=== PATIENT | male | born 1995 | race Caucasian/White ===

== ENCOUNTER 2019-04-05 09:07 | Emergency (ER) | payer MEDICAID ==
[2019-04-05 09:13] VITALS: BMI 29.2
--- NOTE | 2019-04-05 09:55 | ED PDOC ---
Arrival/HPI - General Chief Complaint: GI Problem Time Seen by Provider: 04/05/19 09:08 Historian: Patient - History of Present Illness Narrative History of Present Illness (Text): 24 y/o male with PMH of hepatitis C presents to the ED c/o right sided abdominal pain and dark stools x 3 days. Abdominal pain is sharp, constant, and occasionally radiates up into right shoulder. Recently diagnosed with Hep C in November but has not yet received treatment. Pt has had similar symptoms intermittent symptoms in the past but never for this long. Pt saw primary doctor last week and had normal lab values. Has not taken any medication for pain. Denies fever, chills, nausea, vomiting, diarrhea, constipation, melena, hematochezia, back pain, urinary symptoms, SOB, chest pain, or any other associated symptoms. Past Medical History - Provider Review Nursing Documentation Reviewed: Yes - Cardiac Hx Cardiac Disorders: No - Pulmonary Hx Asthma: Yes - Neurological Hx Neurological Disorder: No - HEENT Hx HEENT Disorder: No - Renal Hx Renal Disorder: Yes Other/Comment: fluid in kidneys - Endocrine/Metabolic Hx Endocrine Disorders: No - Hematological/Oncological Hx Blood Disorders: Yes Hx Hepatitis C: Yes - Integumentary Hx Dermatological Disorder: No - Musculoskeletal/Rheumatological Hx Musculoskeletal Disorders: No - Gastrointestinal Hx Gastrointestinal Disorders: No - Genitourinary/Gynecological Hx Genitourinary Disorders: No - Psychiatric Hx Psychophysiologic Disorder: No Hx Substance Use: No - Surgical History Other/Comment: hip femur, titanium and screws on left side. Family/Social History - Physician Review Nursing Documentation Reviewed: Yes Family/Social History: No Known Family HX Smoking Status: Current Some Days Smoker Hx Alcohol Use: No Hx Substance Use: No Allergies/Home Meds Allergies/Adverse Reactions: Allergies acetaminophen [From Tylenol] Allergy (Verified 04/05/19 09:14) ANAPHYLAXIS diphenhydramine [From Benadryl] Allergy (Verified 04/05/19 09:14) ANAPHYLAXIS gabapentin Allergy (Verified 04/05/19 09:14) SWELLING tramadol Allergy (Verified 04/05/19 09:14) URTICARIA Home Medications: Home Meds Medication Instructions Recorded Confirmed Albuterol Sulfate [Proventil Hfa] 2 puff IH PRN PRN 04/05/19 04/05/19 Cyclobenzaprine [Flexeril] 5 mg PO DAILY 04/05/19 04/05/19 Testosterone Cypionate 50 mg IM QWK 04/05/19 04/05/19 [Depo-Testosterone] Topiramate [Topamax] 0 mg PO DAILY 04/05/19 04/05/19 valACYclovir [Valtrex] 0 mg PO DAILY 04/05/19 04/05/19 Review of Systems - Physician Review All systems were reviewed & negative as marked: Yes - Review of Systems Constitutional: Normal. absent: Fevers Eyes: Normal. absent: Vision Changes ENT: Normal. absent: Sore Throat, Sinus Congestion Respiratory: Normal. absent: SOB, Cough Cardiovascular: Normal. absent: Chest Pain, Palpitations, Syncope Gastrointestinal: Abdominal Pain, Diarrhea. absent: Vomiting, Hematochezia, Hematemesis Genitourinary Male: Normal. absent: Dysuria, Frequency Musculoskeletal: Other (right shoulder pain). absent: Back Pain, Neck Pain Skin: Normal. absent: Rash Neurological: Normal. absent: Headache, Dizziness Physical Exam Vital Signs Reviewed: Yes Vital Signs Temp Pulse Resp BP Pulse Ox 04/05/19 09:19 97.5 F L 103 H 20 129/81 98 Temperature: Afebrile Blood Pressure: Normal Pulse: Tachycardic Respiratory Rate: Normal Appearance: Positive for: Well-Appearing, Non-Toxic, Comfortable Pain Distress: None Mental Status: Positive for: Alert and Oriented X 3 - Systems Exam Head: Present: Atraumatic, Normocephalic Pupils: Present: PERRL Extroacular Muscles: Present: EOMI Conjunctiva: Present: Normal Mouth: Present: Moist Mucous Membranes Neck: Present: Normal Range of Motion Respiratory/Chest: Present: Clear to Auscultation, Good Air Exchange. No: Respiratory Distress, Accessory Muscle Use Cardiovascular: Present: Regular Rate and Rhythm, Normal S1, S2, Peripheal Pulses Present Abdomen: Present: Tenderness (RUQ, periumbilical), Normal Bowel Sounds. No: Distention, Peritoneal Signs Back: Present: Normal Inspection. No: CVA Tenderness Upper Extremity: Present: Normal Inspection, Normal ROM. No: Cyanosis, Edema Lower Extremity: Present: Normal Inspection, Normal ROM. No: Edema Neurological: Present: GCS=15, Speech Normal, Motor Func Grossly Intact, Normal Sensory Function, Gait Normal Skin: Present: Warm, Dry, Normal Color. No: Rashes Lymphatic: No: Cervical Adenopathy Psychiatric: Present: Alert, Oriented x 3, Normal Insight, Normal Concentration, Normal Affect, Normal Mood Medical Decision Making ED Course and Treatment: Initial Plan: * Labs * UA * CXR * Abdominal US * CT Abd/Pelvis * Rectal Exam * IVF, Protonix Bloodwork reviewed, very mild anemia at 13.9, otherwise unremarkable US unremarkable 12:59 Continues to refuse rectal exam CT shows constipation but otherwise grossly unremarkable Patient asking to leave AMA, continues to refuse rectal exam, which would determine patient's final disposition depending on presence of occult blood. The patient is choosing to leave against medical advice. I have personally explained to the patient that choosing to do so may result in permanent bodily harm, disability, or . I have discussed at great length that without further evaluation and monitoring there may be unforeseen circumstances and/or deterioration causing permanent bodily harm or as a result of their choice. The patient is alert, oriented, and shows the mental capacity to make clear decisions regarding the patients health care at this time. The patient continues to wish to leave against medical advice. In light of the patients decision to leave against medical advice, follow-up has been arranged and the patient is aware of the importance to following up as instructed. The patient has been advised that they should return to the emergency room immediately if they change their mind at any time, or if their condition begins to change or worsen in any way. - Lab Interpretations Lab Results: 04/05/19 10:33 04/05/19 11:21 Lab Results 04/05/19 11:27: Urine Color Yellow, Urine Appearance Clear, Urine pH 7.0, Ur Specific [place] 1.020, Urine Protein Negative, Urine Glucose (UA) Negative, Urine Ketones Negative, Urine Blood Negative, Urine Nitrate Negative, Urine Bi lirubin Negative, Urine Urobilinogen 0.2, Ur Leukocyte Esterase Trace H, Urine RBC 0 - 2, Urine WBC 2 - 5, Ur Epithelial Cells None, Urine Bacteria Many, Urine Other [place]ast 04/05/19 11:21: Sodium 139, Potassium 3.6, Chloride 104, Carbon Dioxide 27, A nion [place] 11, BUN 12, Creatinine 0.6 L, Est GFR ( Amer) > 60, Est GFR (Non-Af Amer) > 60, Random Glucose 122 H, Calcium 8.7, Magnesium 1.8, Total Bilirubin 0.3, AST 37, ALT 45, Alkaline Phosphatase 73, Total Protein 7.3, Albumin 4.0, Globulin 3.3, Albumin/Globulin Ratio 1.2, Lipase 45 04/05/19 10:33: PT 11.3, INR 1.00, APTT 26.3 L 04/05/19 10:33: WBC 9.7, RBC 4.92, Hgb 13.9 L, Hct 40.7 L, MCV 82.7, MCH 28.3, MCHC 34.2, RDW 13.0, Plt Count 287, MPV 10.1, Neut % (Auto) 79.8 H, Lymph % (Auto) 16.4 L, [place] % (Auto) 3.4, Eos % (Auto) 0.3 L, Baso % (Auto) 0.1, Lymph # (Auto) 1.6, [place] # (Auto) 0.3, Eos # (Auto) 0.0, Baso # (Auto) 0.01, Absolute Neuts (auto) 7.73 H I have reviewed the lab results: Yes - RAD Interpretation Narrative RAD Interpretations (Text): 04/05/19 13:37 CT Abd/Pelvis: FINDINGS: LOWER THORAX: Heart size upper limits of normal. No significant pericardial effusion. There appears to be very tiny hiatal hernia. Mild passive/dependent type atelectasis seen both posterior lower lung miranda. No effusion or basilar pneumothorax. LIVER: The liver exhibits normal size measuring approximately 16 cm in CC dimension. Mild diffuse fatty hepatic infiltration. No obvious hepatic mass collection or calcification. Portal and splenic veins opacified. GALLBLADDER AND BILE DUCTS: Gallbladder is contracted with slight thick-walled appearance. No evidence of intraluminal gallbladder calculi. No pericholecystic fluid collections seen PANCREAS: Unremarkable. No mass. No significant ductal dilatation. SPLEEN: Spleen exhibits normal size and attenuation pattern without mass collection or calcification. ADRENALS: There are no adrenal lesions. KIDNEYS AND URETERS: Kidneys demonstrate relatively symmetric nephrograms. No evidence of nephrolithiasis or hydronephrosis. BLADDER: Urinary bladder incompletely distended with slight thick-walled appearance. Correlation with urinalysis to exclude cystitis. REPRODUCTIVE: Uterus appears unremarkable. APPENDIX: Normal appendix without evidence to suggest acute appendicitis BOWEL: Evaluation of the bowel is limited due to the lack of oral contrast material. The stomach is partially distended with slight thick-walled appearance. Visualized loops of small bowel exhibit normal contour and caliber. No evidence of acute mechanical small bowel obstruction. There is a moderately large amount of stool within the cecum and ascending colon suggesting mild fecal retention/constipation. Colon otherwise appears grossly unremarkable. PERITONEUM: Unremarkable. No fluid collection. No free air. LYMPH NODES: Unremarkable. No enlarged lymph nodes. VASCULATURE: Unremarkable. No aortic aneurysm. No aortic atherosclerotic calcification or mural plaque present. BONES: No evidence of acute displaced fracture nor dislocation. In situ compression screw traversing the left femoral head and neck which is attached to a intramedullary fixation roberto within the left femoral shaft. Hardware appears intact. OTHER FINDINGS: None. IMPRESSION: Findings suggest mild localized constipation right colon as above.. No evidence of acute appendicitis. Mild fatty hepatic infiltration. No evidence of nephrolithiasis or hydronephrosis. Minimal urinary bladder wall thickening in part due to incomplete distention; correlation urinalysis to exclude cystitis In situ compression screw and intramedullary stabilization roberto left femur. Abdominal US: FINDINGS: LIVER: Measures 14.5 cm. Normal echogenicity of the liver parenchyma. No mass. No intrahepatic bile duct dilatation. GALLBLADDER: Unremarkable. No gallstones. COMMON BILE DUCT: Measures 3 mm. No stones. No dilatation. PANCREAS: Unremarkable as visualized. No mass. No ductal dilatation. RIGHT KIDNEY: Measures 11.2cm. Normal echogenicity. No calculus, mass, or hydronephrosis. LEFT KIDNEY: Measures 10.2cm. Normal echogenicity. No calculus, mass, or hydronephrosis. SPLEEN: Normal in size and contour. No mass. AORTA: No aneurysmal dilatation. IVC: Unremarkable. OTHER FINDINGS: None. IMPRESSION: Unremarkable abdominal ultrasound examination. Radiology Orders: 04/05/19 09:44 CHEST PORTABLE [RAD] Stat ABDOMEN COMPLETE [US] Stat 04/05/19 09:48 ABD & PELVIS IV CONTRAST ONLY [CT] Stat Chief Contract Officer: Radiologist Disposition/Present on Arrival - Present on Arrival Any Indicators Present on Arrival: No History of DVT/PE: No History of Uncontrolled Diabetes: No Urinary Catheter: No History of Decub. Ulcer: No History Surgical Site Infection Following: None - Disposition Have Diagnosis and Disposition been Completed?: No Diagnosis: Abdominal pain, Constipation, Anemia, Left against medical advice Disposition: AGAINST MEDICAL ADVICE Disposition Time: 13:45 Condition: GUARDED Discharge Instructions (ExitCare): Anemia Caused by Low Iron, Adult (DC), Acute Abdomen (Belly Pain), Gastrointestinal Bleeding (DC), Leaving Against Medical Advice Additional Instructions: Miralax daily until normal bowel movement, max 3 days Followup with GI doctor within 2 days Followup with primary doctor within 2 days Return to ER with any new/worsening symptoms or if you wish to be re-evaluated Prescriptions: Polyethylene Glycol 3350 [Miralax] 17 gm PO DAILY PRN #1 bottle PRN Reason: Constipation Referrals: Moises Bassett MD [Staff Provider] - Follow up with primary Forms: [employer] [facility] (Ch[place]an), WORK NOTE
[2019-04-05 10:51] LABS: BASO # 0.01 K/mm3 (0.0-2.0); BASO % 0.1 % (0.0-3.0); EOS % 0.3 % (1.5-5.0); HEMOGLOBIN 13.9 g/dL (14.0-18.0); LYMPH # 1.6 (1.2-3.4); LYMPH % 16.4 % (22.0-35.0); MEAN CELL VOLUME 82.7 fl (80.0-105.0); MEAN CORPUSCULAR HEMOGLOBIN 28.3 pg (25.0-35.0); MEAN CORPUSCULAR HGB CONC 34.2 g/dl (31.0-37.0); MEAN PLATELET VOLUME 10.1 fl (7.0-11.0); MONO # 0.3 (0.1-0.6); MONO % 3.4 % (1.0-6.0); RBC 4.92 10^6/uL (3.5-6.1); WHITE BLOOD COUNT 9.7 10^3/uL (4.5-11.0)
[2019-04-05 10:55] LABS: PARTIAL THROMBOPLASTIN TIME 26.3 Seconds (26.9-38.3); PROTHROMBIN TIME 11.3 SECONDS (9.4-12.5)
[2019-04-05 11:42] LABS: ALB/GLOB RATIO 1.2 (1.1-1.8); BLOOD UREA NITROGEN 12 mg/dL (7-21); CALCIUM 8.7 mg/dL (8.4-10.5); GFR NON-AFRICAN AMERICAN > 60; LIPASE 45 U/L (23-300)
[2019-04-05 11:45] LABS: ALT/SGPT 45 U/L (7-56); AST/SGOT 37 U/L (17-59)
--- NOTE | 2019-04-05 12:06 | RAD ---
Date of service: 04/05/2019 HISTORY: abd pain COMPARISON: No prior. TECHNIQUE: 1 view obtained. FINDINGS: LUNGS: No active pulmonary disease. PLEURA: No significant pleural effusion identified, no pneumothorax apparent. CARDIOVASCULAR: No aortic atherosclerotic calcification present. Normal cardiac size. No pulmonary vascular congestion. OSSEOUS STRUCTURES: No significant abnormalities. VISUALIZED UPPER ABDOMEN: Normal. OTHER FINDINGS: None. IMPRESSION: No active disease.
[2019-04-05 12:09] LABS: URINE BILIRUBIN NEGATIVE (NEGATIVE); URINE BLOOD NEGATIVE (NEGATIVE); URINE GLUCOSE (UA) NEGATIVE (NEGATIVE); URINE LEUKOCYTE ESTERASE TRACE Leu/uL (NEGATIVE); URINE PROTEIN NEGATIVE mg/dL (<30 mg/dL); URINE UROBILINOGEN 0.2 E.U./dL (<1 E.U./dL)
--- NOTE | 2019-04-05 12:12 | US ---
Date of service: 04/05/2019 HISTORY: RUQ pain radiates to shoulder COMPARISON: None. TECHNIQUE: Sonographic evaluation of the abdomen. FINDINGS: LIVER: Measures 14.5 cm. Normal echogenicity of the liver parenchyma. No mass. No intrahepatic bile duct dilatation. GALLBLADDER: Unremarkable. No gallstones. COMMON BILE DUCT: Measures 3 mm. No stones. No dilatation. PANCREAS: Unremarkable as visualized. No mass. No ductal dilatation. RIGHT KIDNEY: Measures 11.2cm. Normal echogenicity. No calculus, mass, or hydronephrosis. LEFT KIDNEY: Measures 10.2cm. Normal echogenicity. No calculus, mass, or hydronephrosis. SPLEEN: Normal in size and contour. No mass. AORTA: No aneurysmal dilatation. IVC: Unremarkable. OTHER FINDINGS: None. IMPRESSION: Unremarkable abdominal ultrasound examination.
[2019-04-05 12:14] LABS: URINE APPEARANCE CLEAR (CLEAR); URINE COLOR YELLOW (YELLOW)
[2019-04-05 12:33] LABS: URINE BACTERIA MANY /hpf; URINE RBC 0 - 2 /hpf (0-2)
[2019-04-05 12:47] VITALS: RESP 18; TEMP 97.7
--- NOTE | 2019-04-05 13:30 | CT ---
Date of service: 04/05/2019 PROCEDURE: CT abdomen and pelvis HISTORY: Right flank pain COMPARISON: No prior study available for comparison TECHNIQUE: Contiguous axial images of the abdomen and pelvis performed in standard fashion following intravenous injection of approximately 147 cc Omnipaque 350 contrast material. Additional 2D sagittal and coronal reformats generated. Radiation dose: Total exam DLP = 318.92 mGy-cm. This CT exam was performed using one or more of the following dose reduction techniques: Automated exposure control, adjustment of the mA and/or kV according to patient size, and/or use of iterative reconstruction technique. FINDINGS: LOWER THORAX: Heart size upper limits of normal. No significant pericardial effusion. There appears to be very tiny hiatal hernia. Mild passive/dependent type atelectasis seen both posterior lower lung miranda. No effusion or basilar pneumothorax. LIVER: The liver exhibits normal size measuring approximately 16 cm in CC dimension. Mild diffuse fatty hepatic infiltration. No obvious hepatic mass collection or calcification. Portal and splenic veins opacified. GALLBLADDER AND BILE DUCTS: Gallbladder is contracted with slight thick-walled appearance. No evidence of intraluminal gallbladder calculi. No pericholecystic fluid collections seen PANCREAS: Unremarkable. No mass. No significant ductal dilatation. SPLEEN: Spleen exhibits normal size and attenuation pattern without mass collection or calcification. ADRENALS: There are no adrenal lesions. KIDNEYS AND URETERS: Kidneys demonstrate relatively symmetric nephrograms. No evidence of nephrolithiasis or hydronephrosis. BLADDER: Urinary bladder incompletely distended with slight thick-walled appearance. Correlation with urinalysis to exclude cystitis. REPRODUCTIVE: Uterus appears unremarkable. APPENDIX: Normal appendix without evidence to suggest acute appendicitis BOWEL: Evaluation of the bowel is limited due to the lack of oral contrast material. The stomach is partially distended with slight thick-walled appearance. Visualized loops of small bowel exhibit normal contour and caliber. No evidence of acute mechanical small bowel obstruction. There is a moderately large amount of stool within the cecum and ascending colon suggesting mild fecal retention/constipation. Colon otherwise appears grossly unremarkable. PERITONEUM: Unremarkable. No fluid collection. No free air. LYMPH NODES: Unremarkable. No enlarged lymph nodes. VASCULATURE: Unremarkable. No aortic aneurysm. No aortic atherosclerotic calcification or mural plaque present. BONES: No evidence of acute displaced fracture nor dislocation. In situ compression screw traversing the left femoral head and neck which is attached to a intramedullary fixation roberto within the left femoral shaft. Hardware appears intact. OTHER FINDINGS: None. IMPRESSION: Findings suggest mild localized constipation right colon as above.. No evidence of acute appendicitis. Mild fatty hepatic infiltration. No evidence of nephrolithiasis or hydronephrosis. Minimal urinary bladder wall thickening in part due to incomplete distention; correlation urinalysis to exclude cystitis In situ compression screw and intramedullary stabilization roberto left femur.
[2019-04-05 14:02] VITALS: BP 110/75; PULSE 74; O2SAT 100
== END 2019-04-05 14:13 | disposition left against medical advice (07) ==
LOC: ED 09:07
DX: D64.9 Anemia, unspecified (principal); K59.00 Constipation, unspecified; R10.9 Unspecified abdominal pain; B19.20 Unspecified viral hepatitis C without hepatic coma; J45.909 Unspecified asthma, uncomplicated; F17.210 Nicotine dependence, cigarettes, uncomplicated
CPT/HCPCS: 71045; 74177; 76700; 80053; 81001; 83690; 83735; 85025; 85610; 85730; 87086; 96374; 99284; C9113; Q9967

== ENCOUNTER 2019-04-06 12:39 | Emergency (ER) | payer MEDICAID ==
[2019-04-06 12:40] VITALS: BMI 29.2
[2019-04-06 12:42] VITALS: RESP 18; TEMP 98.2; O2SAT 98
--- NOTE | 2019-04-06 15:16 | ED PDOC ---
Arrival/HPI - General Chief Complaint: GI Problem Time Seen by Provider: 04/06/19 14:51 Historian: Patient - History of Present Illness Narrative History of Present Illness (Text): 04/06/19 15:13 A 24 year old male, whose past medical history includes asthma, borderline diabetic, hepatitis C, and roberto in leg, presents to the emergency department complaining of worsening abdominal pain and new onset of rectal bleeding with bright red blood. Patient reports he was seen yesterday for abdominal pain and stool changes, and was instructed if symptoms worsen, to return to be evaluated here in the ER. Patient notes he was experiencing dizziness however not at this time. Patient denies any other complaints at this time. Denies any surgical history. Patient mentions he has an appointment to meet with GI on 04/11/2019. No PMD Past Medical History - Provider Review Nursing Documentation Reviewed: Yes - Cardiac Hx Cardiac Disorders: No - Pulmonary Hx Asthma: Yes - Neurological Hx Neurological Disorder: No - HEENT Hx HEENT Disorder: No - Renal Hx Renal Disorder: Yes Other/Comment: fluid in kidneys - Endocrine/Metabolic Hx Endocrine Disorders: No - Hematological/Oncological Hx Blood Disorders: Yes Hx Hepatitis C: Yes - Integumentary Hx Dermatological Disorder: No - Musculoskeletal/Rheumatological Hx Musculoskeletal Disorders: No - Gastrointestinal Hx Gastrointestinal Disorders: No - Genitourinary/Gynecological Hx Genitourinary Disorders: No - Psychiatric Hx Psychophysiologic Disorder: No Hx Substance Use: No - Surgical History Other/Comment: hip femur, titanium and screws on left side. Family/Social History - Physician Review Nursing Documentation Reviewed: Yes Family/Social History: Unknown Family HX Smoking Status: Current Some Days Smoker Hx Alcohol Use: No Hx Substance Use: No Allergies/Home Meds Allergies/Adverse Reactions: Allergies acetaminophen [From Tylenol] Allergy (Verified 04/06/19 14:56) ANAPHYLAXIS diphenhydramine [From Benadryl] Allergy (Verified 04/06/19 14:56) ANAPHYLAXIS gabapentin Allergy (Verified 04/06/19 14:56) SWELLING tramadol Allergy (Verified 04/06/19 14:56) URTICARIA Home Medications: Home Meds Medication Instructions Recorded Confirmed Albuterol Sulfate [Proventil Hfa] 2 puff IH PRN PRN 04/05/19 04/06/19 Cyclobenzaprine [Flexeril] 5 mg PO DAILY 04/05/19 04/06/19 Testosterone Cypionate 50 mg IM QWK 04/05/19 04/06/19 [Depo-Testosterone] Topiramate [Topamax] 0 mg PO DAILY 04/05/19 04/06/19 valACYclovir [Valtrex] 0 mg PO DAILY 04/05/19 04/06/19 Review of Systems - Physician Review All systems were reviewed & negative as marked: Yes - Review of Systems Gastrointestinal: Abdominal Pain (worsening) Genitourinary Male: Other (rectal bleeding bright red blood) Neurological: absent: Dizziness Physical Exam - Physical Exam Narrative Physical Exam (Text): Gen: VS reviewed, alert, well developed, well nourished, nontoxic, mild distress . ENT: normal pharynx. Eye: EOMI, PERRL. Neck: no JVD, supple, no adenopathy. CV: regular rate, regular rhythm, no rubs, no murmur, no gallops, S1, S2, pulses equal and strong. Pulm: no distress, clear to auscultation, no wheeze, no rhonchi, breath sounds equal, no rales. Abd: soft, nontender, no guarding, no rebound, no rigidity, normal bowel sounds. Ext: no edema. Skin: good color, no rash, no cyanosis. Psych: responds appropriately to questions, normal affect. Neuro: oriented x 3, CN2-12 intact grossly, motor intact, sensation intact. Rectal: Chaperoned by ARLIN Miller: no blood in rectal vault, no active bleeding. Vital Signs Temp Pulse Resp BP Pulse Ox 04/06/19 12:42 98.2 F 85 18 136/78 98 Medical Decision Making ED Course and Treatment: 04/06/19 15:19 Impression: 24 year old male with worsening abdominal pain and new onset rectal bleeding. Plan: -- Labs -- Reassess and disposition Prior Visits: Notes and results from previous visits were reviewed. Patient was last seen here on 04/05/2019 for abdominal pain and dark stools. Patient was discharged. Progress Notes: 04/06/19 16:42 patient seen for recurrent rectal bleeding, no fever, no hemodynamic instability, Hb stable. patient has an upcoming appointment with GI. it was discussed with the patient that admission is not necessary at this time and the goal is to see GI for eventual colonoscopy. patient understands and is agreeable to plan and will return for any new or worsening symptoms especially worsening abdominal pain or worsening bleeding. - Scribe Statement The provider has reviewed the documentation as recorded by the Ross Gimenez Provider Scribe Attestation: All medical record entries made by the Scribe were at my direction and personally dictated by me. I have reviewed the chart and agree that the record accurately reflects my personal performance of the history, physical exam, medical decision making, and the department course for this patient. I have also personally directed, reviewed, and agree with the discharge instructions and disposition. Disposition/Present on Arrival - Present on Arrival Any Indicators Present on Arrival: No History of DVT/PE: No History of Uncontrolled Diabetes: No Urinary Catheter: No History of Decub. Ulcer: No History Surgical Site Infection Following: None - Disposition Have Diagnosis and Disposition been Completed?: Yes Diagnosis: Rectal bleeding Disposition: HOME/ ROUTINE Disposition Time: 16:44 Patient Plan: Discharge Condition: STABLE Discharge Instructions (ExitCare): Bloody Stools Additional Instructions: return immediately for any new or worsening symptoms especially fever greater than 100.4, worsening bleeding or abdominal pain. keep your appointment with the gastreoenterologist to discuss further testing such as a colonoscopy. Forms: [facility] ([place]), WORK NOTE
[2019-04-06 16:17] LABS: BASO # 0.01 K/mm3 (0.0-2.0); BASO % 0.1 % (0.0-3.0); HEMOGLOBIN 13.9 g/dL (14.0-18.0); LYMPH # 1.3 (1.2-3.4); LYMPH % 10.4 % (22.0-35.0); MEAN CELL VOLUME 83.2 fl (80.0-105.0); MEAN CORPUSCULAR HEMOGLOBIN 27.9 pg (25.0-35.0); MEAN CORPUSCULAR HGB CONC 33.5 g/dl (31.0-37.0); MONO # 0.3 (0.1-0.6); MONO % 2.2 % (1.0-6.0); RBC 4.99 10^6/uL (3.5-6.1); RED CELL DISTRIBUTION WIDTH 13.1 % (11.5-14.5); WHITE BLOOD COUNT 12.7 10^3/uL (4.5-11.0)
[2019-04-06 16:25] LABS: ALB/GLOB RATIO 1.2 (1.1-1.8); ALBUMIN 4.1 g/dL (3.0-4.8); ALT/SGPT 43 U/L (7-56); AST/SGOT 33 U/L (17-59); BLOOD UREA NITROGEN 14 mg/dL (7-21); CALCIUM 9.1 mg/dL (8.4-10.5); GFR NON-AFRICAN AMERICAN > 60
[2019-04-06 17:04] VITALS: BP 110/73; PULSE 82
== END 2019-04-06 17:03 | disposition home or self-care (01) ==
LOC: ED 12:39
DX: K62.5 Hemorrhage of anus and rectum (principal)